=== PATIENT | female | born 1990 | race Caucasian/White ===

== ENCOUNTER 2017-01-30 10:38 | Emergency (ER) | payer SELFPAY ==
[~2017-01-30] VITALS: Ht 160 cm; Wt 129.3 kg
[~2017-01-30 10:38] MED LIST: AMOXIL500 MG PO; AUGMENTIN 875875 MG PO; BACTRIM DS 8001 TA1 PO; BENTYL10 MG PO; CHILD'S CHEW1 CTB PO; CIPROFLOXACIN500 MG PO; HYDROCODONE BIT1 T11 PO; MACROBID100 M1 PO; MACRODANTIN100 MG PO; MIRENA52 MG IU; MOTRIN800 MG PO; NKHM; PERCOCET 325 MG1 TA2 PO; PONSTEL250 MG PO; PRENATAL1 TA2 PO; SINGULAIR10 MG PO; TYLENOL WITH CO1 TA1 PO; TYLENOL325 M1; TYLENOL325 M2 PO; VICODIN 5/500 505 MG PO; ZOFRAN4 MG PO
[2017-01-30 11:11] LABS: BILIRUBIN 1+ (NEGATIVE); BLOOD 3+ (NEGATIVE); CLARITY SL CLOUDY (CLEAR); COLOR YELLOW (YELLOW); GLUCOSE NEGATIVE (NEGATIVE); KETONE 1+ (NEGATIVE); LEUKO ESTERASE NEGATIVE (NEGATIVE); NITRITE NEGATIVE (NEGATIVE); PH 5.5 (5.0-9.0); PROTEIN 1+ (NEGATIVE); SPECIFIC GRAVITY >= 1.030 (1.005-1.030)
[2017-01-30 11:14] LABS: BASO # 0.1 10*3/uL (0.0-0.1); BASO % 0.7 % (0.0-1.0); EOS # 0.1 10*3/uL (0.0-0.4); EOS % 1.2 % (1.0-4.0); HEMATOCRIT 38.2 % (37.0-47.0); HEMOGLOBIN 12.6 g/dl (12.0-16.0); LYMPH # 1.3 10*3/uL (1.3-4.4); LYMPH % 16.6 % (27.0-41.0); MEAN CELL VOLUME 87.2 fl (81.0-99.0); MEAN CORPUSCULAR HGB 28.8 pg (27.0-31.0); MEAN PLATELET VOLUME 9.6 fl (9.6-12.3); MONO # 0.9 10*3/uL (0.1-1.0); MONO % 11.6 % (3.0-9.0); NEUT # 5.3 10*3/uL (2.3-7.9); NEUT % 69.4 % (47.0-73.0); PLATELET COUNT AUTOMATED 289 10*3/uL (130-400); RED BLOOD COUNT 4.38 10*6/uL (4.10-5.10); RED CELL DISTRI WIDTH 13.6 % (0-14.5); WHITE BLOOD COUNT 7.6 10*3/uL (4.8-10.8)
[2017-01-30 11:23] LABS: MUCOUS 3+; URINE REFLEX COMMENT YES (NO); WBC 0-2 wbc/hpf (0-5)
[2017-01-30 11:32] LABS: ALBUMIN 3.5 gm/dl (3.1-4.5); ALKALINE PHOSPHATASE 81 U/L (45-117); BILIRUBIN, TOTAL 0.4 mg/dl (0.2-1.0); BUN 7 mg/dl (7-24); CARBON DIOXIDE 25 mmol/L (21-32); CHLORIDE 104 mmol/L (98-107); EST GLOM FILT AFRICAN AMERICAN > 60 ml/min; GLUCOSE 95 mg/dL (65-99); POTASSIUM 3.6 mmol/L (3.5-5.1); SGOT/AST 25 IU/L (3-35); SGPT/ALT 48 U/L (12-78); SODIUM 138 mmol/L (136-145); TOTAL PROTEIN 8.1 gm/dL (6.4-8.2)
[2017-01-30] MEDS ORDERED: ZOFRAN4 MG PO (11:43)
== END 2017-01-30 11:47 | disposition home or self-care (01) ==
LOC: ED 10:38
PROVIDERS: Nurse Practitioner Family
DX: B34.9 Viral infection, unspecified (principal); R03.0 Elevated blood-pressure reading, without diagnosis of hypertension

== ENCOUNTER 2019-09-21 09:59 | Emergency (ER) | payer OTHER ==
[~2019-09-21] VITALS: Ht 160 cm; Wt 145.1 kg
[2019-09-21] MEDS ORDERED: Tobrex Ophth S2.5 ML OPH (10:52)
[2019-09-21] MEDS ORDERED: ACULAR 0.5%3 ML OPH (10:52)
== END 2019-09-21 10:55 | disposition home or self-care (01) ==
LOC: ED 09:59
DX: H57.11 Ocular pain, right eye (principal); H57.89 Other specified disorders of eye and adnexa; M86.9 Osteomyelitis, unspecified

== ENCOUNTER 2020-04-09 10:43 | Emergency (ER) | payer OTHER ==
[~2020-04-09 10:43] MED LIST changes: +ACULAR 0.5%3 ML OPH; +Tobrex Ophth S2.5 ML OPH
[2020-04-09 11:13] LABS: BASO # 0.1 10*3/uL (0.0-0.1); BASO % 0.9 % (0.0-1.0); EOS # 0.3 10*3/uL (0.0-0.4); EOS % 4.5 % (1.0-4.0); HEMATOCRIT 39.2 % (37.0-47.0); LYMPH % 26.2 % (27.0-41.0); MEAN CELL VOLUME 91.8 fl (81.0-99.0); MEAN CORPUSCULAR HGB 28.8 pg (27.0-31.0); MEAN CORPUSCULAR HGB CONC 31.4 g/dl (33.0-37.0); MEAN PLATELET VOLUME 9.3 fl (9.6-12.3); MONO # 0.8 10*3/uL (0.1-1.0); MONO % 10.1 % (3.0-9.0); NEUT # 4.3 10*3/uL (2.3-7.9); NEUT % 57.2 % (47.0-73.0); PLATELET COUNT AUTOMATED 350 10*3/uL (130-400); RED BLOOD COUNT 4.27 10*6/uL (4.10-5.10); RED CELL DISTRI WIDTH 13.5 % (0-14.5); WHITE BLOOD COUNT 7.5 10*3/uL (4.8-10.8)
[2020-04-09 11:27] LABS: ALBUMIN 3.2 gm/dl (3.1-4.5); ALKALINE PHOSPHATASE 87 U/L (45-117); BUN 15 mg/dl (7-24); CHLORIDE 107 mmol/L (98-107); LIPASE 56 U/L (73-393); POTASSIUM 4.3 mmol/L (3.5-5.1); SGOT/AST 15 IU/L (3-35); SGPT/ALT 35 U/L (12-78); SODIUM 138 mmol/L (136-145); TOTAL PROTEIN 8.2 gm/dL (6.4-8.2)
[2020-04-09 11:49] LABS: BILIRUBIN NEGATIVE (NEGATIVE); BLOOD NEGATIVE (NEGATIVE); CLARITY SL CLOUDY (CLEAR); COLOR YELLOW (YELLOW); GLUCOSE NEGATIVE (NEGATIVE); KETONE NEGATIVE (NEGATIVE); SPECIFIC GRAVITY 1.015 (1.005-1.030)
[2020-04-09 11:50] LABS: BACTERIA 1+; EPITHELIAL CELLS 16-20; LEUKO ESTERASE NEGATIVE (NEGATIVE); NITRITE NEGATIVE (NEGATIVE); UROBILINOGEN < 0.2 E.U./dl (0.2-1.0)
[2020-04-09] MEDS ORDERED: NAPROSYN500 MG PO (13:54)
[2020-04-09] MEDS ORDERED: METHOCARBAMOL500 M1 PO (13:54)
== END 2020-04-09 14:30 | disposition home or self-care (01) ==
LOC: ED 10:43
PROVIDERS: Nurse Practitioner Family
DX: N20.0 Calculus of kidney (principal); T14.8XXA Other injury of unspecified body region, initial encounter; Z79.899 Other long term (current) drug therapy; X58.XXXA Exposure to other specified factors, initial encounter; Y93.89 Activity, other specified; Y92.89 Other specified places as the place of occurrence of the external cause; Y99.8 Other external cause status

== ENCOUNTER → 2020-07-30 | Outpatient (CLI) | payer OTHER ==
[~2020-07-30] MED LIST changes: +METHOCARBAMOL500 M1 PO; +NAPROSYN500 MG PO
== END | disposition home or self-care (01) ==
LOC: NM 13:00
PROVIDERS: ATTEND Family Medicine
DX: R10.11 Right upper quadrant pain (principal)

== ENCOUNTER → 2020-09-10 | Outpatient (CLI) | payer OTHER | END | disposition home or self-care (01) | LOC: US 10:50 | PROVIDERS: ATTEND Surgery | DX: K76.0 Fatty (change of) liver, not elsewhere classified (principal); R16.1 Splenomegaly, not elsewhere classified; Z90.49 Acquired absence of other specified parts of digestive tract ==

== ENCOUNTER 2021-05-16 17:56 | Emergency (ER) | payer OTHER ==
[~2021-05-16] VITALS: Ht 154.9 cm; Wt 140.6 kg
== END 2021-05-16 19:35 | disposition left against medical advice (07) ==
LOC: ED 17:56
DX: J02.9 Acute pharyngitis, unspecified (principal); Z20.822 Contact with and (suspected) exposure to COVID-19; R51.9 Headache, unspecified; R11.0 Nausea; H53.149 Visual discomfort, unspecified; Z88.6 Allergy status to analgesic agent; Z88.2 Allergy status to sulfonamides; Z79.899 Other long term (current) drug therapy; Z79.2 Long term (current) use of antibiotics; Z98.51 Tubal ligation status; Z53.29 Procedure and treatment not carried out because of patient's decision for other reasons

== ENCOUNTER → 2021-10-31 | Outpatient (CLI) | payer OTHER | END | disposition home or self-care (01) | LOC: COVID19 17:17 | PROVIDERS: ATTEND Student in an Organized Health Care Education/Training Program | DX: U07.1 COVID-19 (principal) ==

== ENCOUNTER 2022-02-16 23:49 | Emergency (ER) | payer OTHER ==
[~2022-02-16] VITALS: Ht 160 cm; Wt 136.1 kg
== END 2022-02-17 01:30 | disposition home or self-care (01) ==
LOC: ED 23:49
DX: F41.9 Anxiety disorder, unspecified (principal); Z98.51 Tubal ligation status; Z88.6 Allergy status to analgesic agent; Z88.1 Allergy status to other antibiotic agents; Z88.8 Allergy status to other drugs, medicaments and biological substances

== ENCOUNTER 2022-06-16 20:02 | Emergency (ER) | payer OTHER ==
[~2022-06-16] VITALS: Ht 167.6 cm; Wt 113.4 kg
[2022-06-16 20:25] LABS: BILIRUBIN Negative (Negative); BLOOD 3+ (Negative); CLARITY Turbid (Clear); COLOR Red (Yellow); GLUCOSE Negative (Negative); KETONE Trace (Negative); LEUKO ESTERASE 1+ (Negative); NITRITE Negative (Negative); SPECIFIC GRAVITY 1.025 (1.001-1.030)
[2022-06-16 20:29] LABS: BASO # 0.1 10*3/uL (0.0-0.1); BASO % 0.8 % (0.0-1.0); EOS # 0.3 10*3/uL (0.0-0.4); EOS % 3.2 % (1.0-4.0); HEMATOCRIT 38.1 % (37.0-47.0); LYMPH % 33.9 % (27.0-41.0); MEAN CELL VOLUME 87.2 fl (81.0-99.0); MEAN CORPUSCULAR HGB 28.6 pg (27.0-31.0); MEAN CORPUSCULAR HGB CONC 32.8 g/dl (33.0-37.0); MEAN PLATELET VOLUME 9.5 fl (9.6-12.3); MONO # 0.8 10*3/uL (0.1-1.0); MONO % 9.3 % (3.0-9.0); NEUT # 4.7 10*3/uL (2.3-7.9); NEUT % 52.2 % (47.0-73.0); PLATELET COUNT AUTOMATED 355 10*3/uL (130-400); RED BLOOD COUNT 4.37 10*6/uL (4.10-5.10); RED CELL DISTRI WIDTH 13.3 % (0-14.5)
[2022-06-16 20:46] LABS: ALKALINE PHOSPHATASE 89 U/L (45-117); BUN 13 mg/dl (7-24); CHLORIDE 110 mmol/L (98-107); CREATININE 0.79 mg/dL (0.55-1.02); LIPASE 113 U/L (73-393); POTASSIUM 4.2 mmol/L (3.5-5.1); SGOT/AST 19 IU/L (3-35); SGPT/ALT 27 U/L (12-78); SODIUM 142 mmol/L (136-145); TOTAL PROTEIN 7.7 gm/dL (6.4-8.2)
[2022-06-16 21:02] LABS: RBC TNTC rbc/hpf (0-2)
[2022-06-16 21:03] LABS: BACTERIA 3+; EPITHELIAL CELLS 0-2
[2022-06-16] MEDS ORDERED: LEVOFLOXACIN500 MG PO (22:32)
== END 2022-06-16 23:18 | disposition home or self-care (01) ==
LOC: ED 20:02
PROVIDERS: Emergency Medicine
DX: N30.90 Cystitis, unspecified without hematuria (principal); Z88.6 Allergy status to analgesic agent; Z88.1 Allergy status to other antibiotic agents; Z98.51 Tubal ligation status; Z98.890 Other specified postprocedural states

== ENCOUNTER 2022-08-29 19:36 | Emergency (ER) | payer OTHER ==
[~2022-08-29] VITALS: Ht 154.9 cm; Wt 145.1 kg
[~2022-08-29 19:36] MED LIST changes: +LEVOFLOXACIN500 MG PO
[2022-08-29] MEDS ORDERED: AMOXICILLIN500 M2 PO (21:43)
[2022-08-29] MEDS ORDERED: Motrin,Rufen800 MG PO (21:43)
== END 2022-08-29 21:48 | disposition home or self-care (01) ==
LOC: ED 19:36
DX: J02.9 Acute pharyngitis, unspecified (principal); Z20.822 Contact with and (suspected) exposure to COVID-19; R50.9 Fever, unspecified; R05.9 Cough, unspecified; Z88.2 Allergy status to sulfonamides; Z79.899 Other long term (current) drug therapy; Z79.2 Long term (current) use of antibiotics; Z98.890 Other specified postprocedural states

== ENCOUNTER 2025-03-20 18:14 | Emergency (ER) | payer OTHER ==
[~2025-03-20] VITALS: Ht 157.4 cm; Wt 154.2 kg
[~2025-03-20 18:14] MED LIST changes: +AMOXICILLIN500 M2 PO; +Motrin,Rufen800 MG PO
[2025-03-20] MEDS ORDERED: CLONAZEPAM0.5 M2 PO (18:34)
== END 2025-03-20 20:46 | disposition home or self-care (01) ==
LOC: ED 18:14
DX: S63.502A Unspecified sprain of left wrist, initial encounter (principal); Z79.899 Other long term (current) drug therapy; Z88.1 Allergy status to other antibiotic agents; Z88.2 Allergy status to sulfonamides; Z98.51 Tubal ligation status; Z98.890 Other specified postprocedural states; W22.8XXA Striking against or struck by other objects, initial encounter; Y93.89 Activity, other specified; Y92.89 Other specified places as the place of occurrence of the external cause; Y99.8 Other external cause status